=== PATIENT | female | born 1965 | race African-American/Black ===

== ENCOUNTER 2016-04-28 11:00 | Outpatient (RCR) | payer MEDICARE, MEDICAID | END 2016-05-20 | disposition home or self-care (01) | LOC: PTY 11:00 | DX: M54.5 Low back pain (principal); M79.605 Pain in left leg; Z88.0 Allergy status to penicillin | CPT/HCPCS: 97110; 97116; 97140; 97162; G0283; G8978; G8979 ==

== ENCOUNTER → 2016-06-17 | Outpatient (RCR) | payer MEDICARE, MEDICAID | END | disposition home or self-care (01) | LOC: PTY 11:00 | DX: M54.5 Low back pain (principal); M79.605 Pain in left leg | CPT/HCPCS: 97110; 97140; G0283 ==

== ENCOUNTER 2016-06-19 11:00 | Outpatient (RCR) | payer MEDICARE, MEDICAID | END 2016-07-18 | disposition home or self-care (01) | LOC: PTY 11:00 | DX: M54.5 Low back pain (principal) | CPT/HCPCS: 97110; 97140; G0283 ==

== ENCOUNTER 2017-02-17 11:40 | Outpatient (CLI) | payer MEDICARE, MEDICAID ==
--- NOTE | 2017-02-17 15:00 | Diagnostic Imaging Report ---
Indication: Neck pain Technique: MRI examination of the cervical spine was performed in a 1.5 Jenni magnet. Sequences obtained include sagittal and axial T1 and T2 fast spin echo, and sagittal STIR. No IV gadolinium was given Comparison: none Findings: There is straightening of the cervical spine. There is no bone marrow edema, soft tissue swelling or abnormal fluid collections identified. The spinal cord appears normal as visualized from about the foramen magnum to the upper part of the thoracic spine. There is no compression of the cord. C1-2 is unremarkable. C2-3 shows no central stenosis. There is magnetic susceptibility on the left aspect of C3 presumably due to hardware. This obscures the left neural foramen from visualization. The right C2-3 neural foramen appears normal. C3-4 is unremarkable. C4-5 shows a mild concentric disc bulge. There is mild right foraminal stenosis due to uncovertebral spur formation. C5-6 shows narrowing and desiccation of the disc, concentric disc bulge and mild bilateral foraminal stenosis due to uncovertebral spur formation. C6-7 shows mild narrowing of the disc. There is no narrowing of the neural foramen or central canal. C7-T1 is unremarkable. Impression: Degenerative disease of the cervical spine as described above.
== END 2017-02-17 13:40 | disposition home or self-care (01) ==
LOC: MRI 11:40
DX: M48.02 Spinal stenosis, cervical region (principal)
CPT/HCPCS: 72141